=== PATIENT | female | born 1935 | race Caucasian/White ===

== ENCOUNTER → 2018-03-30 09:18 | Outpatient (CLI) | payer MEDICARE, SELFPAY ==
[2018-03-10 18:54] VITALS: BMI 22.3
[2018-03-12 08:31] VITALS: TEMP 36.7
--- NOTE | 2018-03-30 | DI.ECHO.S_ITS ---
[facility]---------+ [facility] +---------+ : : [address] : : : : [id number] : : : : Phone: [phone]+ Echocardiogram Report + + :Name: ROSA PANDYA Study Date: 03/30/2018 Height: 62 in : :[facility] Weight: 133 lb : : Gender: Female BSA: 1.6 m2 : :: 1935 Age: 82 yrs BP: 144/64 mmHg: :Reason For Study: Aortic valve stenosis : : Performed By: Leann Vargas : :Referring: SAE SHER : + + Interpretation Summary The left ventricle is normal in size, wall thickness, and systolic function without any focal wall motion abnormalities. The ejection fraction is estimated to be 60-65%. Assessment of diastolic parameters indicates a relaxation abnormality of the left ventricle, consistent with normal filling pressures. The right ventricle grossly appears normal in size with probable normal systolic function. The right ventricular systolic pressure is estimated at 38 mmHg assuming a right atrial pressure of 3 mm Hg. The left atrium is severely dilated. Right atrial size is normal. There is mild mitral regurgitation. There is critically severe aortic stenosis which has increased since prior study. The calculated aortic valve area is 0.5 cm2. The peak aortic velocity is 5.5 m/sec. The peak aortic velocity on the previous exam was 5.0 m/sec. There is mild to moderate aortic regurgitation. There is no other significant valvular heart disease. The aortic root is normal size. Consider cardiology consult to see if patient is candidate for transfemoral aortic valve implant. Procedure: A two-dimensional transthoracic echocardiogram with color flow and Doppler was performed. The study quality was technically good. Comparison is made with the echocardiogram of 04-25-17. The patient was in normal sinus rhythm during the exam. Left Ventricle: The left ventricle is normal in size, wall thickness, and systolic function without any focal wall motion abnormalities. The ejection fraction is estimated to be 60-65%. Assessment of diastolic parameters indicates a relaxation abnormality of the left ventricle, consistent with normal filling pressures. Right Ventricle: The right ventricle grossly appears normal in size with probable normal systolic function. Atria: The left atrium is severely dilated. Right atrial size is normal. The interatrial septum is intact with no evidence for an atrial septal defect. Mitral Valve: The mitral valve leaflets appear borderline thickened, but open well. There is mild mitral regurgitation. Aortic Valve: There is critically severe aortic stenosis. The calculated aortic valve area is 0.5 cm2. The peak aortic velocity is 5.5 m/sec. The peak aortic velocity on the previous exam was 5.0 m/sec. The aortic valve mean gradient is 70 mmHg. Severity ratio is 0.16. The aortic valve area indexed to the BSA is 0.34 . There is mild to moderate aortic regurgitation. Tricuspid Valve: The tricuspid valve is not well visualized, but is grossly normal. There is mild tricuspid regurgitation. The right ventricular systolic pressure is estimated at 38 mmHg assuming a right atrial pressure of 3 mm Hg. Pulmonic Valve: The pulmonic valve is not well visualized. There is no other significant valvular heart disease. Great Vessels: The aortic root is normal size. The dimensions of the ascending aorta are normal. The aortic arch is normal in size. The IVC is of normal diameter and collapses greater than 50% with a sniff. This suggests a low right atrial pressure of 3 mm Hg. Pericardium/ Pleura There is no pericardial effusion. There is no pleural effusion. MMode/2D Measurements & Calculations LVIDd: 5.1 cm LVOT diam: 2.1 cm LVIDs: 2.9 cm Ao root diam: 2.8 cm FS: 42.6 % Aortic Jxn: 2.2 cm EPSS: 1.3 cm asc Aorta Diam: 3.1 cm IVSd: 0.92 cm Ao Arch Diam (Prox Trans): 2.5 cm LVPWd: 0.91 cm LV lozada. diameter/BSA (cm/m^2): 3.2 LV sys. diameter/BSA (cm/m^2): 1.8 LA dimension: 4.2 cm RA long axis: 4.9 cm LA A2 area: 24.2 cm2 RA area: 16.4 cm2 LA A4 area: 29.4 cm2 RA vol: 46.6 ml LA length (vol): 5.6 cm RA : 29.0 ml/m2 LA vol: 107.5 ml IVC diam: 1.2 cm LA vol index: 66.9 ml/m2 RVDd major: 4.8 cm RVD1 (basal): 3.6 cm RVD2 (mid): 3.5 cm ARCELIA (plan): 0.76 cm2 Doppler Measurements & Calculations Ao V2 max: 546.1 cm/sec LVOT Max Phong: 82.6 cm/sec Ao V2 mean: 396.5 cm/sec LV V1 max P.7 mmHg Ao max P.3 mmHg LV V1 VTI: 20.3 cm Ao mean P.3 mmHg ARCELIA(I,D): 0.55 cm2 Ao V2 VTI: 125.3 cm ARCELIA(V,D): 0.51 cm2 sev ratio: 0.16 ARCELIA indexed to BSA (cm^2/m^2): 0.34 AI P1/2t: 407.4 msec AI dec slope: 327.6 cm/sec2 MV E max phong: 79.7 cm/sec TR max phong: 296.6 cm/sec MV A max phong: 119.2 cm/sec TR max P.2 mmHg MV E/A: 0.67 Med Peak E' Phong: 5.1 cm/sec E/E' med: 15.8 Lat Peak E' Phong: 5.6 cm/sec E/E' lat: 14.2 E/e' average: 15.0 MV dec time: 0.27 sec MV P1/2t: 80.9 msec MV P1/2t max phong: 79.9 cm/sec MVA(P1/2t): 2.7 cm2 Reading Physician:PM
== END ==
PROVIDERS: Family Provider Family Medicine; PCP Family Medicine; Visit Provider Family Medicine
DX: I35.0 Nonrheumatic aortic (valve) stenosis (principal)
CPT/HCPCS: 93306

== ENCOUNTER 2018-04-06 12:42 | Day surgery (SDC) | payer MEDICARE, SELFPAY ==
[2018-03-10 18:54] VITALS: BMI 22.3
[2018-03-12 08:31] VITALS: TEMP 36.7
[2018-04-06] VITALS (10 sets, daily range): BP systolic 65–90; BP diastolic 37–59; PULSE 64–93; RESP 9–16; TEMP 36.2–36.6; O2SAT 93–98; BMI 23.0
[2018-04-06] MEDS: SODIUM CHLORIDE 0.9% 1,000 ML 200 ML IV (13:39)
[2018-04-06] MEDS: MIDAZOLAM 5 MG/5 ML VIAL IV (14:14)
[2018-04-06] MEDS: fentaNYL 250 MCG/5 ML INJ IV (14:33)
--- NOTE | 2018-04-06 14:43 | PM.OP.ENDO ---
Operative Date/Time/Diagnoses - Date of procedure: 04/06/18 Time of procedure: 14:44 Pre-op diagnosis: Gastrointestinal hemorrhage with symptomatic iron-deficiency anemia Post-op diagnosis: same Procedure & Clinicians Study performed: Colonoscopy Sedation per surgeon Same procedure as scheduled: Yes Indications: 82-year-old female recently hospitalized for iron deficiency anemia. She required transfusion of packed red blood cells. EGD at that admission several weeks ago revealed no significant abnormalities. She returns now for planned scheduled colonoscopy following bowel preparation. Surgeon: Bernard Monk Procedure Notes SCOAP/Timeout: Yes Procedure in detail: After obtaining informed consent, the patient was brought to the GI suite and placed in the left lateral decubitus position on the examination table. After placement of appropriate monitors, the patient was given incremental doses of Versed and Fentanyl until an appropriate level of sedation was achieved. A time out was held per SCOAP protocol. A digital rectal examination was performed and did not reveal any masses or obstructing lesions. The colonoscope was gently passed into the patient's anus and the entire colon navigated to the level of the cecum with minimal difficulty. Once in the cecum, the scope was withdrawn being sure to go before and beyond all mucosal folds and prominences and get an excellent examination. The findings are noted above. At the level of the rectal vault, the scope was retroflexed and the internal anal canal was examined. The scope was straightened and air aspirated from the colon. The instrument was removed from the patient's body and the procedure was concluded. The patient was allowed to awaken from sedation without difficulty and taken to the post-anesthesia care unit in good condition. Scope withdrawal time: 8:30 Sedation minutes: 28 Findings: diverticulosis (Large circumferential too numerous to count diverticula throughout the entire colon including cecum) and other findings (1. Normal terminal ileum 2. No evidence of neoplastic disease or colitis 3. No obvious bleeding source identified 4. No obvious vascular ectasias) Specimen(s): none sent Complications: none Recommendations: High fiber diet and Other recommendation (If recurrence hemorrhage occurs would recommend evaluation at facility with angiography or capsule endoscopy capability) Plan for aftercare: 1. Discharge to home 2. Follow up with surgery as needed Follow up: as needed Disposition: PACU
[2018-04-06] MEDS: SODIUM CHLORIDE 0.9% 1,000 ML 100 ML IV (14:50)
--- NOTE | 2018-04-06 15:10 | SUR.PHASEI ---
bp gradually increasing, pt asymptomatic talking and drinking juice.
--- NOTE | 2018-04-06 17:45 | SUR.PHASEII ---
late entry: daughter brought to bedside- pt alert oriented, no c/o dizziness or weakness. pt left when ready and left in stable condition.
== END 2018-04-06 15:55 | disposition home or self-care (01) ==
PROVIDERS: Family Provider Family Medicine; PCP Family Medicine; Visit Provider Surgery
PROC: 0DJD8ZZ Inspection of Lower Intestinal Tract, Via Natural or Artificial Opening Endoscopic (ICD-10-PCS; CPT 45378; 2018-04-06 14:00)
DX: K92.2 Gastrointestinal hemorrhage, unspecified (principal); D50.9 Iron deficiency anemia, unspecified; K57.30 Diverticulosis of large intestine without perforation or abscess without bleeding
CPT/HCPCS: 45378; 99152; 99153; J2250; J3010

== ENCOUNTER → 2018-04-19 08:00 | Oncology outpatient (ONC) | payer MEDICARE, SELFPAY ==
[2018-03-10 18:54] VITALS: BMI 22.3
[2018-04-19] VITALS (8 sets, daily range): BP systolic 105–141; BP diastolic 50–70; PULSE 67–88; RESP 16–18; TEMP 36.8–37.3; O2SAT 100
[2018-04-19] MEDS: SODIUM CHLORIDE 0.9% 250 ML 21 ML IV (09:25)
[2018-04-19 17:21] LABS: Hematocrit 30.4 % (36-46); Hemoglobin 10.2 g/dL (12.0-16.0)
== END ==
PROVIDERS: Family Provider Family Medicine; PCP Family Medicine; Visit Provider Family Medicine
DX: D50.9 Iron deficiency anemia, unspecified (principal); K92.2 Gastrointestinal hemorrhage, unspecified
CPT/HCPCS: 36415; 36430; 85014; 85018; 86850; 86900; 86901; P9016

== ENCOUNTER 2018-05-10 13:07 | Observation (INO) | payer MEDICARE, SELFPAY ==
[2018-03-10 18:54] VITALS: BMI 22.3
[2018-05-10] VITALS (12 sets, daily range): BP systolic 91–133; BP diastolic 49–68; PULSE 62–107; RESP 12–20; TEMP 36.4–37.2; O2SAT 97–100; BMI 23.0
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
[2018-05-10] MEDS: ONDANSETRON 4 MG/2 ML INJ IV (13:51)
[2018-05-10] MEDS: SODIUM CHLORIDE 0.9% 1,000 ML 1000 ML IV (13:51)
[2018-05-10] MEDS: PANTOPRAZOLE 40 MG VIAL IV (13:51)
[2018-05-10 13:55] LABS: INR 1.1 (0.9-1.3); Prothrombin Time 11.6 SECONDS (10.1-12.7)
[2018-05-10 13:57] LABS: Basophils Percent Auto 1.1 % (0-2); Eosinophils Percent Auto 1.4 % (2-4); Lymphocytes Percent Auto 14.3 % (25-40); Mean Corpuscular HGB Conc 31.7 % (30-36); Mean Corpuscular Hemoglobin 26.5 PG (26-34); Mean Corpuscular Volume 83.6 fL (80-100); Monocytes Percent Auto 11.8 % (3-14); Neutrophils Absolute Auto 3600 /uL (3000-5900); Neutrophils Percent Auto 71.4 % (50-75); Platelet Count 305 X10^3/uL (150-400); Red Blood Cell Count 2.38 X10^6/uL (4.0-5.2); Red Cell Distribution Width 15.2 % (11.6-14.8)
[2018-05-10 13:58] LABS: PTT Partial Thromboplastin Tim 30 SECONDS (26.4-36.2)
[2018-05-10 14:00] LABS: Alanine Aminotransferase 25 IU/L (9-52); Albumin 3.6 g/dL (3.5-5.0); Albumin Globulin Ratio 1.3 (1.0-2.8); Alkaline Phosphatase 63 U/L (38-126); Aspartate Aminotransferase 28 IU/L (14-36); BUN Creatinine Ratio 28.3 (6-22); Bilirubin Total 0.3 mg/dL (0.2-1.3); Blood Urea Nitrogen 17 mg/dL (7-17); Calcium 8.7 mg/dL (8.4-10.2); Carbon Dioxide 22 mmol/L (22-32); Chloride 104 mmol/L (98-107); Estimated Glomerular Filt Rate > 60.0 mL/min (>60); Globulin 2.7 g/dL (1.7-4.1); Glucose 142 mg/dL (80-110); HEMOLYSIS < 15 (0-50); Sodium 137 mmol/L (137-145); Total Protein 6.3 g/dL (6.3-8.2)
[2018-05-10 14:03] LABS: Add Manual Diff / Slide Review SLIDE REVIEW; Hematocrit 19.9 % (36-46); Hemoglobin 6.3 g/dL (12.0-16.0)
[2018-05-10 14:34] LABS: RBC Morphology Normal Morphology
--- NOTE | 2018-05-10 16:19 | PM.HP.1 ---
History of Present Illness Date Patient Seen: 05/10/18 Time Patient Seen: 16:20 Chief complaint: CAN'T BREATHE Narrative: Patient developed increasing weakness and shortness of breath over the past few days. She knew what was happening as this has happened before. She has had a progressive anemia over the past several months requiring transfusion at least twice she has had workup including GI with scopes above and below as well as lab evaluation and no clear cause has been found. She has an appointment with Hematology upcoming but until then he is uncertain of the cause or long-term prognosis. She evidently does have a positive guaiac but never black tarry or bloody stools. She has been found with some iron deficiency and has remained on a supplement although that is not felt to be primary cause of her anemia. She has also been found recently with a severe aortic stenosis which could contribute to her symptoms and perhaps the anemia. I believe a path review has been done of the RBC but not sure if hemolysis has been ruled out. Patient History Medical History Anemia (Acute) GI (gastrointestinal bleed) (Acute) Aortic stenosis (Chronic) Hypertension (Chronic) Allergic rhinitis (Chronic) Breast cancer (Chronic) Hiatal hernia (Chronic) Iron deficiency anemia (Acute) Diverticulosis (Inactive) Surgical History H/O mastectomy (Inactive) Family & Social History Family History Mother No problems noted. Father AMI (acute myocardial infarction) Social History: household members family,none Tobacco & Substance use: Tobacco type cigarettes Smoking Status Former smoker alcohol intake current alcohol intake frequency a few times a week Substance Use Type marijuana,prescription drug Meds Home Medications Medication Instructions Recorded Confirmed Type cetirizine 10 mg PO DAILY PRN #0 02/12/18 04/06/18 History aspirin 81 mg PO QPM 03/10/18 04/06/18 History calcium carbonate-vitamin D3 1 tab PO QPM 03/10/18 03/10/18 History [Calcium 500 + D] cholecalciferol (vitamin D3) 1,000 unit PO QPM 03/10/18 03/10/18 History [Vitamin D3] ferrous sulfate 325 mg PO DAILY 03/10/18 03/10/18 History lisinopril 10 mg PO QPM 03/10/18 04/06/18 History omeprazole 20 mg PO BID 03/10/18 04/06/18 History Allergies Allergy/AdvReac Type Severity Reaction Status Date / Time No Known Drug Allergies Allergy Verified 05/10/18 13:17 Review of Systems Constitutional Constitutional: Reports fatigue and Reports weakness Eyes Eyes: Reports system reviewed; no additional complaints, except as documented ENT Ears, Nose, Mouth, and Throat: Yes system reviewed; no additional complaints, except as documented Cardiovascular Cardiovascular: Reports shortness of breath with activity Respiratory Respiratory: Reports dyspnea on exertion Gastrointestinal Gastrointestinal: Reports system reviewed and no additional complaints, except as documented Genitourinary Genitourinary: Reports system reviewed and no additional complaints, except as documented Musculoskeletal Musculoskeletal: Reports system reviewed; no additional complaints, except as documented Integumentary/Breasts Skin/Breast: Reports system reviewed and no additional complaints, except as documented Neurologic Neurologic: Reports system reviewed and no additional complaints, except as documented and Reports weakness Psychiatric Psychiatric: Reports system reviewed and no additional complaints, except as documented Endocrine Endocrine: Reports system reviewed and no additional complaints, except as documented and Reports fatigue Hematologic/Lymphatic Hematologic/Lymphatic: Reports system reviewed and no additional complaints, except as documented Exam Vital Signs (past 8 hours): - 05/10/18 13:17 05/10/18 14:06 05/10/18 14:24 Temperature 97.6 F Pulse Rate 101 H 93 H 107 H Respiratory Rate 13 13 12 Blood Pressure 133/61 H Blood Pressure [Left Arm] 125/54 H 91/50 L Blood Pressure [Right Arm] Pulse Oximetry 100 98 100 05/10/18 15:01 05/10/18 15:14 05/10/18 15:31 Temperature 99.0 F 99.0 F Pulse Rate 92 H 92 H 101 H Respiratory Rate 17 14 20 Blood Pressure 104/53 L 102/61 Blood Pressure [Left Arm] 99/64 Blood Pressure [Right Arm] Pulse Oximetry 99 05/10/18 15:33 05/10/18 16:00 Temperature 98.2 F Pulse Rate 99 H 97 H Respiratory Rate 17 14 Blood Pressure Blood Pressure [Left Arm] 102/61 Blood Pressure [Right Arm] 97/57 L Pulse Oximetry 100 100 Oxygen Delivery Method Room Air Const General: frail appearing Nutritional Appearance: average body habitus Orientation: alert, awake and oriented x3 HENMT Head: normal to inspection, normocephalic and atraumatic Ears: hearing grossly normal bilaterally Nose: external nose normal Face and sinus: normal facial exam Mouth: oral mucosae normal Eyes General: appearance normal, both eyes and all related structures Pupils: PERRL Neck Neck: normal visual inspection Thyroid: thyroid normal Chest Chest: normal inspection of the chest Resp Effort & Inspection: normal respiratory effort Auscultation: clear to auscultation bilaterally Percussion: percussion normal Cardio Palpation: normal PMI Rate: regular rate Heart Sounds: murmur continuous late and III/ and diastolic GI Inspection: normal to inspection Palpation: soft and no hepatosplenomegaly Percussion: normal to percussion Auscultation: normal bowel sounds Back/Spine/Pelvis Back: normal to inspection Skin General: no rashes or lesions noted Neuro General: alert, awake and oriented x3 Cranial Nerves: CN's II-XI intact bilaterally Cognition: normal cognition Speech: speech normal Sensory Exam: no sensory deficits noted Extrem General: normal to inspection Left upper extremity: normal to inspection Right lower extremity: normal to inspection Psych Appearance: grossly normal and well kempt Mental Status: mental status grossly normal Objective Labs Result Diagrams: 05/10/18 13:25 05/10/18 13:25 Labs: Laboratory Results - last 24 hr 05/10/18 05/10/18 05/10/18 13:25 13:25 13:25 WBC 5.0 RBC 2.38 L Hgb 6.3 L* Hct 19.9 L* MCV 83.6 MCH 26.5 MCHC 31.7 RDW 15.2 H Plt Count 305 Neut % (Auto) 71.4 Lymph % (Auto) 14.3 L [place] % (Auto) 11.8 Eos % (Auto) 1.4 L Baso % (Auto) 1.1 Neut # (Auto) 3600 RBC Morphology Normal morphology PT 11.6 INR 1.1 APTT 30 Sodium 137 Potassium 4.0 Chloride 104 Carbon Dioxide 22 BUN 17 Creatinine 0.60 Estimated GFR > 60.0 BUN/Creatinine Ratio 28.3 H Glucose 142 H Calcium 8.7 Total Bilirubin 0.3 AST 28 ALT 25 Alkaline Phosphatase 63 Total Protein 6.3 Albumin 3.6 Globulin 2.7 Albumin/Globulin Ratio 1.3 Blood Type Antibody Screen Crossmatch 05/10/18 05/10/18 13:25 13:25 WBC RBC Hgb Hct MCV MCH MCHC RDW Plt Count Neut % (Auto) Lymph % (Auto) [place] % (Auto) Eos % (Auto) Baso % (Auto) Neut # (Auto) RBC Morphology PT INR APTT Sodium Potassium Chloride Carbon Dioxide BUN Creatinine Estimated GFR BUN/Creatinine Ratio Glucose Calcium Total Bilirubin AST ALT Alkaline Phosphatase Total Protein Albumin Globulin Albumin/Globulin Ratio Blood Type Cancelled A Positive Antibody Screen Cancelled Negative Crossmatch See Detail Assessment & Plan (1) Anemia: Problem details: Ongoing persistent and worsening, no cause so far in defining any clear underlying cause possibly iron deficiency may also have hemolytic causes. Awaiting appointment with hematology Qualifiers: Anemia type: Bone marrow failure anemia type: Chronic kidney disease stage: Folate deficiency anemia type: Hemolytic anemia type: Iron deficiency anemia type: Other causes of anemia: Vitamin B12 deficiency anemia type: Current visit: No Status: Acute (2) GI (gastrointestinal bleed): Problem details: She has been found with positive guaiac but so far evaluation is found no clear cause or source of bleeding. Not clear how much this contributes. Qualifiers: GI bleed type/associated pathology: Gastritis type: Current visit: No Status: Acute (3) Aortic stenosis: Problem details: A recent finding thought to be severe or could be a factor in early hemolysis perhaps her above issues unclear how much impact his rehab but certainly might contribute to her presenting symptoms. Qualifiers: Cardiac valve disease etiology: Current visit: Yes Status: Chronic (4) Breast cancer: Problem details: Has been treated history of mastectomy seems in remission at this time. Current visit: Yes Status: Chronic (5) Hypertension: Problem details: Chronic ongoing problem usually well controlled. Current visit: Yes Status: Chronic (6) Hiatal hernia: Current visit: Yes Status: Chronic (7) Iron deficiency anemia: Problem details: Has been found with some iron deficiency has been on replacement not clear how much this contributes. Current visit: Yes Status: Acute (8) Allergic rhinitis: Current visit: Yes Status: Chronic Plan: Assessment/Plan Narrative: Will admit for observation transfuse 3 units of blood overnight recheck in the morning not sure what else we can do I will ask for a path review of admitting smear but presume other workup has been completed in the past. She is eager to go home so anticipate discharge in the morning. 45 min was spent in direct patient care.
[2018-05-10 17:05] LABS: Add Manual Diff / Slide Review NO; Eosinophils Percent Auto 1.3 % (2-4); Hemoglobin 7.2 g/dL (12.0-16.0); Lymphocytes Percent Auto 14.2 % (25-40); Mean Corpuscular HGB Conc 32.2 % (30-36); Mean Corpuscular Hemoglobin 27.1 PG (26-34); Mean Corpuscular Volume 84.1 fL (80-100); Monocytes Percent Auto 8.9 % (3-14); Neutrophils Absolute Auto 4800 /uL (3000-5900); Neutrophils Percent Auto 74.6 % (50-75); Platelet Count 299 X10^3/uL (150-400); Red Blood Cell Count 2.64 X10^6/uL (4.0-5.2); Red Cell Distribution Width 15.3 % (11.6-14.8); White Blood Cell Count 6.4 X10^3/uL (4.5-11.0)
[2018-05-10 17:13] LABS: Hematocrit 22.2 % (36-46)
[2018-05-10] MEDS: SODIUM CHLORIDE 0.9% FLUSH 10 ML IV (23:50)
[2018-05-11 00:15] VITALS: BP 102/49; PULSE 74; RESP 16; TEMP 37.2
--- NOTE | 2018-05-11 01:20 | PC.NURSE ---
Patient is alert and oriented. Breath sounds CTA with RA sat of 97%. HRR. Denies nausea. BT present and abdomen is soft. Denies dysuria, frequency, urgency or incontinence. Independent with bed mobility. Walked to bathroom with SBA and is steady on feet; denies dizziness, lightheadedness, weakness or impaired balance. Denies pain. Fall risk score is moderate and bed alarm activated for the night.
[2018-05-11 04:00] VITALS: BP 94/53; PULSE 75; RESP 14; TEMP 37.1; O2SAT 92
[2018-05-11 07:00] VITALS: O2SAT 98
[2018-05-11 08:00] VITALS: BP 113/69; PULSE 78; RESP 18; TEMP 36.8
--- NOTE | 2018-05-11 08:45 | PM.DS.1 ---
History of Present Illness Date Patient Seen: 05/11/18 Time Patient Seen: 08:45 Chief complaint: CAN'T BREATHE Narrative: see H&P Discharge Providers Date of admission: 05/10/18 15:52 Primary care physician: Purvi Mares MD Discharge provider: Issa Nuno MD Summary Discharge Diagnosis: Anemia with apparently multiple factors involved. These include possible GI loss, iron deficiency, possible hemolysis. Hypertension not a significant factor in this hospitalization. See problem list for chronic problems. Hospital Course: After increasing weakness and shortness of breath came to the emergency room evaluated found to be significantly anemic and referred for admission. She received for 3 units of packed red blood cells we are currently waiting for final blood count but anticipate that it should be close to hematocrit 30. She is feeling a bit better, stronger less short of breath up and around on her own. Status at Discharge Cognitive/behavioral status at discharge: Normal Functional status at discharge: uses cane/walker Overall status at discharge: patient is back to baseline Time Spent with Patient Greater than 30 minutes Exam Vital Signs (past 8 hours): - 05/11/18 04:00 Temperature 98.7 F Pulse Rate 75 Respiratory Rate 14 Blood Pressure 94/53 L Pulse Oximetry 92 Oxygen Delivery Method Room Air Narrative Exam Narrative: Somewhat frail-appearing but up and around with walker no acute distress. HEENT unremarkable neck is benign chest is clear heart regular with a prominent late systolic murmur abdomen soft nontender nondistended normoactive bowel tones no organomegaly or mass extremities benign neurologically benign Objective Labs Result Diagrams: 05/10/18 16:51 05/10/18 13:25 Labs: Laboratory Results - last 24 hr 05/10/18 05/10/18 05/10/18 13:25 13:25 13:25 WBC 5.0 RBC 2.38 L Hgb 6.3 L* Hct 19.9 L* MCV 83.6 MCH 26.5 MCHC 31.7 RDW 15.2 H Plt Count 305 Neut % (Auto) 71.4 Lymph % (Auto) 14.[address] [place] % (Auto) 11.8 Eos % (Auto) 1.4 L Baso % (Auto) 1.1 Neut # (Auto) 3600 RBC Morphology Normal morphology Smear Path Review PT 11.6 INR 1.1 APTT 30 Sodium 137 Potassium 4.0 Chloride 104 Carbon Dioxide 22 BUN 17 Creatinine 0.60 Estimated GFR > 60.0 BUN/Creatinine Ratio 28.3 H Glucose 142 H Calcium 8.7 Total Bilirubin 0.3 AST 28 ALT 25 Alkaline Phosphatase 63 Total Protein 6.3 Albumin 3.6 Globulin 2.7 Albumin/Globulin Ratio 1.3 Blood Type Antibody Screen Crossmatch 05/10/18 05/10/18 05/10/18 13:25 13:25 16:51 WBC 6.4 RBC 2.64 L Hgb 7.2 L Hct 22.2 L MCV 84.1 MCH 27.1 MCHC 32.2 RDW 15.3 H Plt Count 299 Neut % (Auto) 74.6 Lymph % (Auto) 14.[address] [place] % (Auto) 8.9 Eos % (Auto) 1.3 L Baso % (Auto) 1.0 Neut # (Auto) 4800 RBC Morphology Smear Path Review Cancelled PT INR APTT Sodium Potassium Chloride Carbon Dioxide BUN Creatinine Estimated GFR BUN/Creatinine Ratio Glucose Calcium Total Bilirubin AST ALT Alkaline Phosphatase Total Protein Albumin Globulin Albumin/Globulin Ratio Blood Type Cancelled A Positive Antibody Screen Cancelled Negative Crossmatch See Detail Discharge Plan Discharge Plan Patient Disposition: Home, Self-Care Provider Discharge Instructions Diet: Diet as Tolerated Discharge Data Primary Care Provider: Purvi Mares Attending Provider: Issa Nuno Admit Date/Time: 05/10/18 15:52
[2018-05-11 08:53] LABS: Add Manual Diff / Slide Review NO; Basophils Percent Auto 1.1 % (0-2); Eosinophils Percent Auto 1.9 % (2-4); Hematocrit 35.2 % (36-46); Hemoglobin 11.6 g/dL (12.0-16.0); Lymphocytes Percent Auto 12.3 % (25-40); Mean Corpuscular HGB Conc 33.1 % (30-36); Mean Corpuscular Hemoglobin 27.7 PG (26-34); Mean Corpuscular Volume 83.8 fL (80-100); Monocytes Percent Auto 11.8 % (3-14); Neutrophils Absolute Auto 5200 /uL (3000-5900); Neutrophils Percent Auto 72.9 % (50-75); Platelet Count 316 X10^3/uL (150-400); Red Cell Distribution Width 15.3 % (11.6-14.8); White Blood Cell Count 7.1 X10^3/uL (4.5-11.0)
--- NOTE | 2018-05-11 08:57 | PC.NURSE ---
Pt is up sitting in chair. She ate breakfast and has been up to use the bathroom. Dr/Raul. in room to see patient and ordered and H&H. When results come back pt will be discharged home, depending on lab result. She is getting dressed now and sitting up in her chair, she will call her friend who lives close to come and pick her up.
== END 2018-05-11 10:35 | disposition home or self-care (01) ==
LOC: ED 14:48 → AC 15:55
PROVIDERS: Admitting Provider Family Medicine; Emergency Provider Emergency Medicine; Family Provider Family Medicine; PCP Family Medicine; Visit Provider Family Medicine
DX: D64.9 Anemia, unspecified (principal); R06.00 Dyspnea, unspecified; K44.9 Diaphragmatic hernia without obstruction or gangrene; I10 Essential (primary) hypertension; I35.0 Nonrheumatic aortic (valve) stenosis; K92.2 Gastrointestinal hemorrhage, unspecified
CPT/HCPCS: 36415; 36430; 80053; 85025; 85610; 85730; 86850; 86900; 86901; 93005; 93041; 96361; 96374; 96375; 99285; G0378; P9016; C9113; J2405

== ENCOUNTER 2018-06-08 14:25 | Observation (INO) | payer MEDICARE, SELFPAY ==
[2018-05-10 16:30] VITALS: BMI 23.0
[2018-06-08] VITALS (8 sets, daily range): BP systolic 125–154; BP diastolic 54–85; PULSE 61–88; RESP 11–20; TEMP 36.7–36.9; O2SAT 97–100; BMI 22.4
[2018-06-08 14:39] LABS: Add Manual Diff / Slide Review NO; Basophils Percent Auto 1.3 % (0-2); Eosinophils Percent Auto 3.4 % (2-4); Hematocrit 26.4 % (36-46); Hemoglobin 8.6 g/dL (12.0-16.0); Lymphocytes Percent Auto 18.4 % (25-40); Mean Corpuscular HGB Conc 32.6 % (30-36); Mean Corpuscular Hemoglobin 26.7 PG (26-34); Monocytes Percent Auto 9.3 % (3-14); Neutrophils Absolute Auto 4700 /uL (3000-5900); Neutrophils Percent Auto 67.6 % (50-75); Platelet Count 350 X10^3/uL (150-400); Red Blood Cell Count 3.22 X10^6/uL (4.0-5.2); Red Cell Distribution Width 14.7 % (11.6-14.8)
[2018-06-08 14:44] LABS: Prothrombin Time 10.8 SECONDS (10.1-12.7)
[2018-06-08 14:47] LABS: PTT Partial Thromboplastin Tim 33 SECONDS (26.4-36.2)
[2018-06-08 14:49] LABS: Alanine Aminotransferase 21 IU/L (9-52); Albumin 4.1 g/dL (3.5-5.0); Albumin Globulin Ratio 1.4 (1.0-2.8); Alkaline Phosphatase 83 U/L (38-126); Aspartate Aminotransferase 24 IU/L (14-36); BUN Creatinine Ratio 21.4 (6-22); Bilirubin Total 0.3 mg/dL (0.2-1.3); Blood Urea Nitrogen 15 mg/dL (7-17); Calcium 9.1 mg/dL (8.4-10.2); Carbon Dioxide 26 mmol/L (22-32); Chloride 102 mmol/L (98-107); Creatine Kinase 42 U/L (30-135); Estimated Glomerular Filt Rate > 60.0 mL/min (>60); Globulin 2.9 g/dL (1.7-4.1); Glucose 101 mg/dL (80-110); HEMOLYSIS < 15 (0-50); Lipase 98 U/L (23-300); Potassium 4.3 mmol/L (3.4-5.1); Sodium 138 mmol/L (137-145)
[2018-06-08 15:02] LABS: Troponin I < 0.012 ng/mL (0.01-0.034)
[2018-06-08 15:20] LABS: D Dimer 552 ng/mL (<230)
--- NOTE | 2018-06-08 15:35 | DI.CT.S_ITS ---
PROCEDURE: CT ANGIO CHEST PE PROTOCOL INDICATIONS: pulmonary embolism TECHNIQUE: After the administration of intravenous contrast, 2 mm thick sections acquired from the pulmonary apices to the posterior costophrenic angles. 3-dimensional maximum intensity projection (MIP) coronal and sagittal reformats were then acquired through the thorax. For radiation dose reduction, the following was used: automated exposure control, adjustment of mA and/or kV according to patient size. COMPARISON: None. FINDINGS: Image quality: Excellent. Pulmonary arteries: Pulmonary arteries are normal in size, and demonstrate no intraluminal filling defects to suggest central pulmonary embolism. Lungs and pleura: No focal consolidation. Diffuse scarring/atelectasis is present.. No pleural effusions or pneumothorax. Central and peripheral airways are patent. Mediastinum: Heart size is enlarged, without pericardial effusion. There are coronary artery calcifications. No mediastinal or hilar adenopathy. Thoracic aorta is normal in caliber and enhancement. Esophagus is normal in caliber. There is a large hiatal hernia. Bones and chest wall: No suspicious bony lesions. There are multiple probably chronic nondisplaced rib fractures on the right.. Thyroid gland grossly unremarkable. No axillary or supraclavicular adenopathy. Surgical clips in left axilla Abdomen: Possible right renal cyst although not entirely imaged and technically indeterminate. Mildly enlarged lymph nodes in the bashir hepatis on image 141 series 4 measuring 1.1 cm. This is a nonspecific finding. Mild T11 compression fracture, age indeterminate. IMPRESSION: No evidence of pulmonary embolism. Very large hiatal hernia. Cardiomegaly. Coronary artery disease. No focal consolidation. Multiple subacute or chronic nondisplaced right rib fractures. Dictated by: Hussein Manzano M.D. on 06/08/2018 at 15:05 Approved by: Hussein Manzano M.D. on 06/08/2018 at 15:12
[2018-06-08 16:10] LABS: Bacteria Urine None Seen; RBC Urine None Seen (0-5/HPF); WBC Urine None Seen (0-5/HPF)
[2018-06-08 16:23] LABS: Amorphous Sediment Urine 1+; Culture Indicated Urine Cult Not Indicated
[2018-06-08 17:56] LABS: Troponin I < 0.012 ng/mL (0.01-0.034)
--- NOTE | 2018-06-08 18:28 | ED.CHESTPAIN ---
HPI - Chest Pain General Chief Complaint: Chest Pain Stated Complaint: Chest Pain History of Present Illness HPI narrative: HPI 82-year-old female with a history of breast CA, anemia, and HTN presents for evaluation of several hours of nonradiating, poorly characterized, left-sided substernal chest pain that is without clear provoking or relieving factors. Patient without cough, fevers, chills, continues to PO well pass flatus and stool at baseline. M/S/F/SocHx notable for: please see HPI; remainder reviewed with patient and in chart. ROS: Negative constitutional, eye, cardiovascular, pulmonary, GI, , MSK, skin, neurologic, psychiatric, endocrine unless noted in the HPI. Exam Gen: Pleasant, non-toxic appearing, resting comfortably. HEENT: NC, AT, PEERL, EOMI. Resp: Clear to auscultation bilaterally, normal work of breathing. Card: RRR with no M/R/G, no crackles in lung bases, no pedal edema, no JVD appreciated. GI: NT/ND Vascular: Both ankles, calves, and thighs of equal size, no calf tenderness to palpation bilaterally. MSK: No chest wall TTP. No visible deformities, strength and tone WNL. Skin: Normal color with no visible lesions. Neuro: AO x 3, no facial asymmetry, vision and hearing WNL. Psych: Mood and affect appropriate. Labs / Imaging (pertinent): WBC 7.0, Hb 8.6, Na 138, K 4.3. Troponin < 0.012, troponin (repeat) <0.012 d-dimer 552 EKG: SR at 77 bpm, no IL segment depressions, PACs, QRS 83 ms, new upright T-wave in V1, increased T-wave amplitude in the 2, V3 in comparison to prior dated 05/10/18. CXR: No acute cardiopulmonary disease process. CTA chest: No evidence of pulmonary embolism. Very large hiatal hernia. Cardiomegaly. Coronary artery disease. No focal consolidation. Multiple subacute or chronic nondisplaced right rib fractures. MDM Previous chart, nursing note, and vitals reviewed. A: 82-year-old female with a history of breast CA and HTN presents for evaluation of several hours of nonradiating, poorly characterized, left-sided substernal chest pain that is without clear provoking or relieving factors. DDx and Evaluation: * ACS - doubt ACS given a non-ischemic EKG and negative serial troponins. * UA - concern for unstable angina, HEART score 4 (Hx - 1, EKG - 1, age - 2, risk factors - 1, troponin - 0; 30 day MACE: 12 to 16.6%). * Pericarditis - consider pericarditis unlikely given the lack of IL segment depressions as well as the absence of diffuse ST-segment elevations, lack of reduction of pain when supine, and lack of a friction rub. * Myocarditis - unlikely given the negative troponin and an EKG without characteristic IL-segment or ST-segment changes. * Dissection - dissection is unlikely given symptoms, and lack of mediastinal widening. * PE - low clinical suspicion given history and alternate diagnosis, further risk stratification (e.g.) Well's not indicated. * Mediastinal Air - no evidence by CXR or auscultation. * Pneumothorax - no evidence by CXR or physical exam. * MSK - doubt given lack of reproducibility on exam. * Endocarditis - no identifiable risk factors, patient afebrile, no new murmurs appreciated on exam; doubt. * GI (Esophageal rupture, GERD) - esophageal rupture effectively excluded given the lack of mediastinal widening, non-toxic appearance, and lack of identifiable risk factors. While not definitively excluded, further evaluation of GERD as well as the patient's hiatal hernia is deferred to an outpatient setting. ED Course: Patient given ASA. Vital signs remained stable and within clinically acceptable limits. Disposition: admitted for cardiac stress test Impression: Chest Pain. (please reference below for remainder of encounter information) Related Data Home Medications Medication Instructions Recorded Confirmed aspirin 81 mg PO QPM 03/10/18 06/08/18 calcium carbonate-vitamin D3 1 tab PO QPM 03/10/18 06/08/18 [Calcium 500 + D] cholecalciferol (vitamin D3) 1,000 unit PO QPM 03/10/18 06/08/18 [Vitamin D3] ferrous sulfate 325 mg PO DAILY 03/10/18 06/08/18 lisinopril 10 mg PO QPM 03/10/18 06/08/18 omeprazole 20 mg PO BID 03/10/18 06/08/18 Allergies Allergy/AdvReac Type Severity Reaction Status Date / Time No Known Drug Allergies Allergy Verified 06/08/18 14:32 PFSH Medical History Anemia (Acute) GI (gastrointestinal bleed) (Acute) Aortic stenosis (Chronic) Hypertension (Chronic) Allergic rhinitis (Chronic) Breast cancer (Chronic) Hiatal hernia (Chronic) Iron deficiency anemia (Acute) Diverticulosis (Inactive) Surgical History H/O mastectomy (Inactive) Social History household members: none Smoking Status: Former smoker alcohol intake: current substance use type: does not use additional social history: has daughters who live in [facility] and patient is moving to that area in near future Exam Initial Vital Signs Initial Vital Signs: Vital Signs Temperature 98.0 F 06/08/18 14:27 Pulse Rate 85 06/08/18 14:27 Respiratory Rate 14 06/08/18 14:27 Blood Pressure 154/76 H 06/08/18 14:27 Pulse Oximetry 100 06/08/18 14:27 Course Orders Ordered: ED Orders 06/08/18 14:15 Complete Blood Count AUTO DIFF Stat Comprehensive Metabolic Panel Stat D Dimer Stat Lipase Stat Partial Thromboplastin Time Stat Prothrombin Time INR Stat Troponin & CK Cardiac Panel Stat 06/08/18 14:28 EKG-12 Lead Stat 06/08/18 15:35 CT angio chest PE protocol Stat 06/08/18 16:05 Urine Microscopic Stat 06/08/18 17:26 Troponin I Stat Vital Signs - 8 hr 06/08/18 14:27 06/08/18 15:01 06/08/18 15:29 Temperature 98.0 F Pulse Rate 85 68 61 Respiratory Rate 14 11 L 14 Blood Pressure 154/76 H Blood Pressure [Left Arm] 134/64 H 139/85 H Pulse Oximetry 100 100 100 06/08/18 16:17 06/08/18 17:04 06/08/18 17:10 Temperature Pulse Rate 72 67 Respiratory Rate 12 14 Blood Pressure Blood Pressure [Left Arm] 125/62 H Pulse Oximetry 100 97 06/08/18 18:00 Temperature Pulse Rate 88 Respiratory Rate 14 Blood Pressure Blood Pressure [Left Arm] 136/54 H Pulse Oximetry 98 MDM - Chest Pain Lab Data Result diagrams: 06/08/18 14:15 06/08/18 14:15 Lab Results 06/08/18 06/08/18 06/08/18 Range/Units 14:15 14:15 14:15 WBC 7.0 (4.5-11.0) X10^3/uL RBC 3.22 L (4.0-5.2) X10^6/uL Hgb 8.6 L (12.0-16.0) g/dL Hct 26.4 L (36-46) % MCV 82.0 (80-100) fL MCH 26.7 (26-34) PG MCHC 32.6 (30-36) % RDW 14.7 (11.6-14.8) % Plt Count 350 (150-400) X10^3/uL Neut % (Auto) 67.6 (50-75) % Lymph % (Auto) 18.4 L (25-40) % [place] % (Auto) 9.3 (3-14) % Eos % (Auto) 3.4 (2-4) % Baso % (Auto) 1.3 (0-2) % Neut # (Auto) 4700 (7901-1163) /uL PT 10.8 (10.1-12.7) SECONDS INR 1.0 (0.9-1.3) APTT 33 D (26.4-36.2) SECONDS D-Dimer (<230) ng/mL Sodium 138 (137-145) mmol/L Potassium 4.3 (3.4-5.1) mmol/L Chloride 102 (98-107) mmol/L Carbon Dioxide 26 (22-32) mmol/L BUN 15 (7-17) mg/dL Creatinine 0.70 (0.52-1.04) mg/dL Estimated GFR > 60.0 (>60) mL/min BUN/Creatinine Ratio 21.4 (6-22) Glucose 101 (80-110) mg/dL Calcium 9.1 (8.4-10.2) mg/dL Total Bilirubin 0.3 (0.2-1.3) mg/dL AST 24 (14-36) IU/L ALT 21 (9-52) IU/L Alkaline Phosphatase 83 (38-126) U/L Total Creatine Kinase 42 (30-135) U/L CK-MB (CK-2) TNP Troponin I < 0.012 (0.01-0.034) ng/mL Total Protein 7.0 (6.3-8.2) g/dL Albumin 4.1 (3.5-5.0) g/dL Globulin 2.9 (1.7-4.1) g/dL Albumin/Globulin Ratio 1.4 (1.0-2.8) Lipase 98 (23-300) U/L Urine RBC (0-5/HPF) Urine WBC (0-5/HPF) Amorphous Sediment Urine Bacteria (None) Ur Culture Indicated? Micro UA Comment 06/08/18 06/08/18 06/08/18 Range/Units 14:15 16:05 17:26 WBC (4.5-11.0) X10^3/uL RBC (4.0-5.2) X10^6/uL Hgb (12.0-16.0) g/dL Hct (36-46) % MCV (80-100) fL MCH (26-34) PG MCHC (30-36) % RDW (11.6-14.8) % Plt Count (150-400) X10^3/uL Neut % (Auto) (50-75) % Lymph % (Auto) (25-40) % [place] % (Auto) (3-14) % Eos % (Auto) (2-4) % Baso % (Auto) (0-2) % Neut # (Auto) (7579-9505) /uL PT (10.1-12.7) SECONDS INR (0.9-1.3) APTT (26.4-36.2) SECONDS D-Dimer 552 H (<230) ng/mL Sodium (137-145) mmol/L Potassium (3.4-5.1) mmol/L Chloride (98-107) mmol/L Carbon Dioxide (22-32) mmol/L BUN (7-17) mg/dL Creatinine (0.52-1.04) mg/dL Estimated GFR (>60) mL/min BUN/Creatinine Ratio (6-22) Glucose (80-110) mg/dL Calcium (8.4-10.2) mg/dL Total Bilirubin (0.2-1.3) mg/dL AST (14-36) IU/L ALT (9-52) IU/L Alkaline Phosphatase (38-126) U/L Total Creatine Kinase (30-135) U/L CK-MB (CK-2) Troponin I < 0.012 (0.01-0.034) ng/mL Total Protein (6.3-8.2) g/dL Albumin (3.5-5.0) g/dL Globulin (1.7-4.1) g/dL Albumin/Globulin Ratio (1.0-2.8) Lipase (23-300) U/L Urine RBC None seen (0-5/HPF) Urine WBC None seen (0-5/HPF) Amorphous Sediment 1+ Urine Bacteria None seen (None) Ur Culture Indicated? Cult not indicated Micro UA Comment Not Reportable Discharge Plan Departure Prescriptions: No Action lisinopril 10 mg tablet 10 mg PO QPM RF: 0 omeprazole 20 MG capsule,delayed release(DR/EC) 20 mg PO BID RF: 0 aspirin 81 mg Tablet,Delayed Release (Dr/Ec) 81 mg PO QPM RF: 0 ferrous sulfate 325 mg (65 mg iron) Tablet 325 mg PO DAILY RF: 0 calcium carbonate-vitamin D3 [Calcium 500 + D] 500 mg(1,250mg) -200 unit Tablet 1 tab PO QPM RF: 0 cholecalciferol (vitamin D3) [Vitamin D3] 1,000 unit Tablet 1,000 unit PO QPM RF: 0
--- NOTE | 2018-06-08 19:44 | PC.NURSE ---
Addendum entered by Elena Dockery R.N. 06/08/18 20:44: Tele showing NSR per ICU staff Original Note: Addendum entered by Elena Dockery R.N. 06/08/18 20:40: Pt resting quietly through evening. Denies discomfort. IV Heparin infusing as per orders. PTT/PT drawn @ 2030. Call light w/in reach, bed alarm on formpt safety. Continue w/plan of care. Original Note: Pt arrived from ER at 192 Initial complaint was chest pain. Denies discomfort at this time. Tele in place Dr Juarez here to see. New orders recieved. Pt oriented to room ans call system, Call light w/in reach.
--- NOTE | 2018-06-08 20:15 | PM.HP.1 ---
History of Present Illness Date Patient Seen: 06/08/18 Time Patient Seen: 20:16 Chief complaint: Chest Pain Narrative: Called to see patient who presents with chest pain. Patient apparently woke up this morning was getting up moving around started having chest pain which she described as pain on the left lateral side. Seemed to kind of move around to the anterior chest. 3/10 at its worst. Sometimes sharp. Sometimes more pressure. No radiation. Nothing into his shoulder or neck. No nausea or vomiting. No diaphoresis. Patient otherwise had been feeling well. It lasted for 6-7 hours did not resolve until she was given Ativan in the emergency room. No other significant new changes or complaints. Patient has not had any leg swelling or traveling. She has not had any history of trauma. She has not had any falls or chest contusions. No other significant new complaints. She has been feeling well. Has been active. Patient has had some fatigue. Apparently she has had a history of anemia. Has had a GI bleed and iron deficiency anemia definitive cause has not been found. She was going to see her oncologist tomorrow about possibly getting iron supplementation IV. No other significant new changes or complaints. Risk factor age and hypertension. History of hyperlipidemia not on medication. No other changes. Patient History Medical History Anemia (Acute) GI (gastrointestinal bleed) (Acute) Aortic stenosis (Chronic) Hypertension (Chronic) Allergic rhinitis (Chronic) Breast cancer (Chronic) Hiatal hernia (Chronic) Iron deficiency anemia (Acute) Diverticulosis (Inactive) Surgical History H/O mastectomy (Inactive) Family & Social History Family History: Reviewed 06/08/18 by Olayinka Bridges MD Family history unavailable: No Social History: household members none Safety & Behavioral: Feels Safe in Current Yes Environment Been Physically Hurt or No Threatened By a Person Suicidal Ideation Description None Suicide Plan Description No Plan Tobacco & Substance use: Tobacco type cigarettes Smoking Status Former smoker alcohol intake current alcohol intake frequency 0-2 drinks per day Substance Use Type marijuana,prescription drug Meds Home Medications Medication Instructions Recorded Confirmed Type aspirin 81 mg PO QPM 03/10/18 06/08/18 History calcium carbonate-vitamin D3 1 tab PO QPM 03/10/18 06/08/18 History [Calcium 500 + D] cholecalciferol (vitamin D3) 1,000 unit PO QPM 03/10/18 06/08/18 History [Vitamin D3] ferrous sulfate 325 mg PO DAILY 03/10/18 06/08/18 History lisinopril 10 mg PO QPM 03/10/18 06/08/18 History omeprazole 20 mg PO BID 03/10/18 06/08/18 History Allergies Allergy/AdvReac Type Severity Reaction Status Date / Time No Known Drug Allergies Allergy Verified 06/08/18 14:32 Review of Systems Review of Systems All systems reviewed & are unremarkable except as noted in HPI and below Exam Vital Signs (past 8 hours): - 06/08/18 14:27 06/08/18 15:01 06/08/18 15:29 Temperature 98.0 F Pulse Rate 85 68 61 Respiratory Rate 14 11 L 14 Blood Pressure 154/76 H Blood Pressure [Left Arm] 134/64 H 139/85 H Pulse Oximetry 100 100 100 06/08/18 16:17 06/08/18 17:04 06/08/18 17:10 Temperature Pulse Rate 72 67 Respiratory Rate 12 14 Blood Pressure Blood Pressure [Left Arm] 125/62 H Pulse Oximetry 100 97 06/08/18 18:00 06/08/18 19:20 Temperature 98.5 F Pulse Rate 88 78 Respiratory Rate 14 20 Blood Pressure 149/55 H Blood Pressure [Left Arm] 136/54 H Pulse Oximetry 98 Oxygen Delivery Method Room Air Oxygen Flow Rate 99 Narrative Exam Narrative: Alert elderly female in no acute distress. Smiling interactive appropriate. Mucous membranes moist. Pupils are equal in spots of light. Neck supple without adenopathy. No JVD or bruits. Lungs are clear. Heart regular rate and rhythm with 2 to 3/6 systolic murmur best heard at the right sternal border but does radiate into the neck and the left side of the chest. No lifts or heaves. She does have some tenderness along the chest wall on the lateral surface of her chest. There is no swelling no erythema no abnormality of the breast area. No axillary adenopathy. Abdomen is soft positive bowel sounds nontender. Extremities without cyanosis clubbing edema. Skin shows no rash. Neurologic exam is nonfocal. Non normal reflexes normal movement she is awake and alert and interactive. His psychologically interactive and appropriate. Smiling Objective Labs Result Diagrams: 06/08/18 14:15 06/08/18 14:15 Labs: Laboratory Results - last 24 hr 06/08/18 06/08/18 06/08/18 14:15 14:15 14:15 WBC 7.0 RBC 3.22 L Hgb 8.6 L Hct 26.4 L MCV 82.0 MCH 26.7 MCHC 32.6 RDW 14.7 Plt Count 350 Neut % (Auto) 67.6 Lymph % (Auto) 18.4 L [place] % (Auto) 9.3 Eos % (Auto) 3.4 Baso % (Auto) 1.3 Neut # (Auto) 4700 PT 10.8 INR 1.0 APTT 33 D D-Dimer Sodium 138 Potassium 4.3 Chloride 102 Carbon Dioxide 26 BUN 15 Creatinine 0.70 Estimated GFR > 60.0 BUN/Creatinine Ratio 21.4 Glucose 101 Calcium 9.1 Total Bilirubin 0.3 AST 24 ALT 21 Alkaline Phosphatase 83 Total Creatine Kinase 42 CK-MB (CK-2) TNP Troponin I < 0.012 Total Protein 7.0 Albumin 4.1 Globulin 2.9 Albumin/Globulin Ratio 1.4 Lipase 98 Urine RBC Urine WBC Amorphous Sediment Urine Bacteria Ur Culture Indicated? Micro UA Comment 06/08/18 06/08/18 06/08/18 14:15 16:05 17:26 WBC RBC Hgb Hct MCV MCH MCHC RDW Plt Count Neut % (Auto) Lymph % (Auto) [place] % (Auto) Eos % (Auto) Baso % (Auto) Neut # (Auto) PT INR APTT D-Dimer 552 H Sodium Potassium Chloride Carbon Dioxide BUN Creatinine Estimated GFR BUN/Creatinine Ratio Glucose Calcium Total Bilirubin AST ALT Alkaline Phosphatase Total Creatine Kinase CK-MB (CK-2) Troponin I < 0.012 Total Protein Albumin Globulin Albumin/Globulin Ratio Lipase Urine RBC None seen Urine WBC None seen Amorphous Sediment 1+ Urine Bacteria None seen Ur Culture Indicated? Cult not indicated Micro UA Comment Not Reportable CT scan of chest shows no abnormality. No PE. Chest x-ray is normal. EKG shows sinus rhythm 77 beats per minute. No real changes from previous EKG. No significant depressions. Assessment & Plan Plan: Assessment/Plan Narrative: Chest pain. CPKs and troponin and EKG unremarkable. No evidence of PE. Patient with certain risk factors and should be ruled out. Does have a history of aortic stenosis which I do not think is the cause. She also has a history of aortic aneurysm which I do not think also is the cause. Negative CT scan. Will need to watch closely though and we will see how rule out is. Treadmill in a.m.. Patient understands questions answered Anemia. Chronic probable iron deficient. Pretty significant but does not need transfusion. Unable to talk to her oncologist today but we should be able to talk to them tomorrow. The question will be whether not we can give iron if that is what they recommend here we should be able to do that. I would will recheck blood in the morning. She does not actively bleeding. Hypertension. Numbers look good restart her usual medicine and will follow. History of breast cancer. Appears to be stable. Not involved in this admission. DVT prophylaxis. With her history of bleeding will hold Lovenox. But will do SCDs. As History of reflux will treat with her usual medication. Code status. Patient is requesting to be no code. Disposition. Unclear how long this will be something we will need to follow. Depending on results of tomorrow's treadmill which will need to be ordered tomorrow will follow from there. Quality VTE Deep Vein Thrombosis/Pulmonary Embolism Present on Admission: No
[2018-06-09] VITALS (13 sets, daily range): BP systolic 103–153; BP diastolic 54–76; PULSE 64–88; RESP 14–20; TEMP 36.6–37.1; O2SAT 96–100
[2018-06-09 01:30] LABS: Creatine Kinase 39 U/L (30-135)
[2018-06-09 01:42] LABS: Troponin I 0.012 ng/mL (0.01-0.034)
[2018-06-09 07:40] LABS: Creatine Kinase 48 U/L (30-135)
[2018-06-09 07:59] LABS: Troponin I < 0.012 ng/mL (0.01-0.034)
--- NOTE | 2018-06-09 08:58 | PM.PN.1 ---
Subjective Date Patient Seen: 06/09/18 Time Patient Seen: 08:58 Interval history: Patient is a 82-year-old female admitted last night for atypical chest pain negative cardiac enzymes stable vitals. Patient has an old history of musculoskeletal injury on that side and this pain was in that area had full evaluation with cardiac enzymes EKG both normal and unchanged and CT scan for pulmonary embolism which rules out embolic activity. Pain resolved with lorazepam and she has had no recurrence of that discomfort. However patient also has ongoing iron deficiency anemia schedule for iron infusion this morning through Oncology has had a full workup of her gut try to localize my GI bleeding site which has been negative so far with upper endoscopy and follow-up full colonoscopy on 2 occasions in the last few months. She did have black tarry stool which was guaiac positive but not recently. Had transfusion about a month and half ago which elevated her hematocrit to 36 at is 26 today. Not complaining of mid abdomen pain and no nausea or vomiting and feels back to her baseline today except for fatigue. Exam Vital Signs (past 8 hours): - 06/09/18 05:44 Temperature 98.3 F Pulse Rate 64 Respiratory Rate 16 Blood Pressure 103/57 L Pulse Oximetry 98 Oxygen Delivery Method Room Air Oxygen Flow Rate 0 Narrative Exam Narrative: Patient sitting comfortably in bed very clear no pain answering questions very clearly PERRLA EOM are intact Neck without thyromegaly or adenopathy Lungs are clear to auscultation Chest wall pain along the left side in at the site of rib injuries from last year duplicates her pain. Cardiovascular exam shows a 2/6 systolic murmur in the aortic area regular rate and rhythm noted no edema Abdomen is soft nontender no hepatosplenomegaly or mass no rebound or guarding Skin without lesions Neuro is intact symmetrical to fine touch and motor and cranial nerves are clear speech is clear and cognition is intact Objective Labs Result Diagrams: 06/08/18 14:15 06/08/18 14:15 Labs: Laboratory Results - last 24 hr 06/08/18 06/08/18 06/08/18 14:15 14:15 14:15 WBC 7.0 RBC 3.22 L Hgb 8.6 L Hct 26.4 L MCV 82.0 MCH 26.7 MCHC 32.6 RDW 14.7 Plt Count 350 Neut % (Auto) 67.6 Lymph % (Auto) 18.4 L [place] % (Auto) 9.3 Eos % (Auto) 3.4 Baso % (Auto) 1.3 Neut # (Auto) 4700 PT 10.8 INR 1.0 APTT 33 D D-Dimer Sodium 138 Potassium 4.3 Chloride 102 Carbon Dioxide 26 BUN 15 Creatinine 0.70 Estimated GFR > 60.0 BUN/Creatinine Ratio 21.4 Glucose 101 Calcium 9.1 Total Bilirubin 0.3 AST 24 ALT 21 Alkaline Phosphatase 83 Total Creatine Kinase 42 CK-MB (CK-2) TNP Troponin I < 0.012 Total Protein 7.0 Albumin 4.1 Globulin 2.9 Albumin/Globulin Ratio 1.4 Lipase 98 Urine RBC Urine WBC Amorphous Sediment Urine Bacteria Ur Culture Indicated? Micro UA Comment 06/08/18 06/08/18 06/08/18 14:15 16:05 17:26 WBC RBC Hgb Hct MCV MCH MCHC RDW Plt Count Neut % (Auto) Lymph % (Auto) [place] % (Auto) Eos % (Auto) Baso % (Auto) Neut # (Auto) PT INR APTT D-Dimer 552 H Sodium Potassium Chloride Carbon Dioxide BUN Creatinine Estimated GFR BUN/Creatinine Ratio Glucose Calcium Total Bilirubin AST ALT Alkaline Phosphatase Total Creatine Kinase CK-MB (CK-2) Troponin I < 0.012 Total Protein Albumin Globulin Albumin/Globulin Ratio Lipase Urine RBC None seen Urine WBC None seen Amorphous Sediment 1+ Urine Bacteria None seen Ur Culture Indicated? Cult not indicated Micro UA Comment Not Reportable 06/09/18 06/09/18 01:03 07:10 WBC RBC Hgb Hct MCV MCH MCHC RDW Plt Count Neut % (Auto) Lymph % (Auto) [place] % (Auto) Eos % (Auto) Baso % (Auto) Neut # (Auto) PT INR APTT D-Dimer Sodium Potassium Chloride Carbon Dioxide BUN Creatinine Estimated GFR BUN/Creatinine Ratio Glucose Calcium Total Bilirubin AST ALT Alkaline Phosphatase Total Creatine Kinase 39 48 CK-MB (CK-2) Troponin I 0.012 < 0.012 Total Protein Albumin Globulin Albumin/Globulin Ratio Lipase Urine RBC Urine WBC Amorphous Sediment Urine Bacteria Ur Culture Indicated? Micro UA Comment Assessment & Plan Plan: Assessment/Plan Narrative: Assessment number 1 chest pain patient admitted from the ER with chest discomfort negative workup negative enzymes negative EKG and negative chest CT scan. Morning troponin and CK pending. I believe that with her external chest wall discomfort to palpation per the patient resemble in her pain that brought her in this is most likely muscular musculoskeletal discomfort clear chest CT scan no aortic change. However she has risk factors hypertension elevated lipids and does have some calcification on coronary arteries per CT scan will do a Persantine stress test id this morning. Anticipate that it will not show acute disease. Assessment 2 anemia patient has had ongoing anemia for some number of months this has been evaluated by upper endoscopy lower endoscopy and has been seeing solutions sales consultant. She is iron deficient. Will give iron infusion this morning she was scheduled to go and do that outpatient her oncologist but was diverted by this admission is will give morning lab work results which are still pending to see if she has dropped more if her hematocrit has dropped significantly since last night's hematocrit 26 and hemoglobin of 8 may need transfusion acutely along with iron infusion. Assessment 3. History of reflux on consistent omeprazole will continue that at this point Assessment 4. Hypertension stable at this admission so far without tachycardia Quality VTE Deep Vein Thrombosis/Pulmonary Embolism Present on Admission: No
[2018-06-09] MEDS: IRON SUCROSE 200 MG in SODIUM CHLORIDE 0.9% 100 ML 220 ML IV (09:29)
[2018-06-09] MEDS: PANTOPRAZOLE 20 MG TABLET PO ×2 (09:31→21:36)
[2018-06-09] MEDS: SODIUM CHLORIDE 0.9% 250 ML 21 ML IV (09:47)
[2018-06-09] MEDS: SODIUM CHLORIDE 0.9% FLUSH 10 ML IV ×2 (09:47→21:36)
[2018-06-09 10:01] LABS: HEMOLYSIS < 15 (0-50); Iron 15 ug/dL (37-170)
[2018-06-09 10:05] LABS: Add Manual Diff / Slide Review NO; Basophils Percent Auto 1.9 % (0-2); Eosinophils Percent Auto 5.5 % (2-4); Hematocrit 25.5 % (36-46); Hemoglobin 8.2 g/dL (12.0-16.0); Lymphocytes Percent Auto 18.4 % (25-40); Mean Corpuscular HGB Conc 32.2 % (30-36); Mean Corpuscular Hemoglobin 26.3 PG (26-34); Mean Corpuscular Volume 81.8 fL (80-100); Monocytes Percent Auto 11.6 % (3-14); Neutrophils Absolute Auto 2700 /uL (3000-5900); Neutrophils Percent Auto 62.6 % (50-75); Platelet Count 313 X10^3/uL (150-400); Red Blood Cell Count 3.12 X10^6/uL (4.0-5.2); White Blood Cell Count 4.4 X10^3/uL (4.5-11.0)
[2018-06-09 10:12] LABS: Percent Iron Saturation 4 % (15-50); Total Iron Binding Capacity 384 ug/dL (265-497); Transferrin 312 mg/dL (206-381)
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
--- NOTE | 2018-06-09 15:25 | PC.NURSE ---
PT HAD LEXISCAN ORDERED FOR THIS MORNING. UNABLE TO COMPLETE DUE TO EATING BREAKFAST AND DRINKING DECAF COFFEE. THIS VOICE TEACHER NOTIFIED DR. OROURKE.
[2018-06-09 16:35] LABS: Hematocrit 23.5 % (36-46); Hemoglobin 7.7 g/dL (12.0-16.0)
[2018-06-09] MEDS: ASPIRIN EC 81 MG TABLET PO (21:35)
[2018-06-09] MEDS: LISINOPRIL 10 MG TABLET PO (21:35)
[2018-06-10] VITALS: BP 127/61; PULSE 81; RESP 17; TEMP 36.9
[2018-06-10 00:28] VITALS: BP 127/61; PULSE 81; RESP 17; TEMP 36.9
[2018-06-10 00:44] VITALS: BP 106/59; PULSE 84; RESP 16; TEMP 36.8
[2018-06-10 03:09] VITALS: BP 109/59; PULSE 77; RESP 16; TEMP 36.6; O2SAT 98
[2018-06-10 03:10] VITALS: BP 109/59; PULSE 77; RESP 16; TEMP 36.6
[2018-06-10 07:38] LABS: Add Manual Diff / Slide Review NO; Basophils Percent Auto 1.7 % (0-2); Eosinophils Percent Auto 4.6 % (2-4); Hematocrit 32.5 % (36-46); Hemoglobin 10.9 g/dL (12.0-16.0); Lymphocytes Percent Auto 14.3 % (25-40); Mean Corpuscular HGB Conc 33.5 % (30-36); Mean Corpuscular Hemoglobin 27.6 PG (26-34); Mean Corpuscular Volume 82.5 fL (80-100); Neutrophils Absolute Auto 3600 /uL (3000-5900); Neutrophils Percent Auto 64.4 % (50-75); Platelet Count 266 X10^3/uL (150-400); Red Blood Cell Count 3.94 X10^6/uL (4.0-5.2); Red Cell Distribution Width 15.6 % (11.6-14.8); White Blood Cell Count 5.5 X10^3/uL (4.5-11.0)
[2018-06-10 07:40] VITALS: BP 135/71; PULSE 72; RESP 18; TEMP 36.6; O2SAT 98
[2018-06-10] MEDS: FERROUS SULFATE 325 MG TABLET PO (09:02)
[2018-06-10] MEDS: PANTOPRAZOLE 20 MG TABLET PO (09:02)
[2018-06-10] MEDS: SODIUM CHLORIDE 0.9% FLUSH 10 ML IV (09:03)
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
--- NOTE | 2018-06-10 10:46 | CM.DPC ---
DCP Cont: Patient is to be discharged today to home. No immediate needs from DCP, is back to her baseline. Is to follow up with her provider with any concerns. P: Discharge today to home, has family to provide transportation. Yahaira Titus RN/Soil Tester
--- NOTE | 2018-06-10 11:35 | PC.NURSE ---
DISCHARGE NOTE: Patient discharging home this shift. Patient anxious to go, waiting on her ride home. Discharge instructions reviewed and questions answered to patient verbal satisfaction. IV discontinued intact, telemetry discontinued. No acute distress. Patient dressed and waiting for ride in room.
== END 2018-06-10 11:45 | disposition home or self-care (01) ==
LOC: ED 18:29 → AC 06-09 07:29
PROVIDERS: Admitting Provider Family Medicine; Emergency Provider Emergency Medicine; Family Provider Family Medicine; PCP Family Medicine; Visit Provider Family Medicine
DX: D50.9 Iron deficiency anemia, unspecified (principal); R07.9 Chest pain, unspecified; I10 Essential (primary) hypertension; Z87.891 Personal history of nicotine dependence
CPT/HCPCS: 36415; 36430; 36591; 36592; 71275; 80053; 81003; 81015; 82550; 82553; 83540; 83550; 83690; 84484; 85014; 85018; 85025; 85379; 85610; 85730; 86850; 86900; 86901; 93005; 93010; 99284; 99285; G0378; P9016; J1756; Q9967

== ENCOUNTER → 2018-07-27 10:58 | Outpatient (CLI) | payer MEDICARE, SELFPAY ==
[2018-06-08 19:05] VITALS: BMI 22.4
== END ==
PROVIDERS: Family Provider Family Medicine; PCP Family Medicine; Visit Provider Internal Medicine Hematology & Oncology
DX: C50.911 Malignant neoplasm of unspecified site of right female breast (principal); Z17.0 Estrogen receptor positive status [ER+]
CPT/HCPCS: 36415

== ENCOUNTER → 2018-08-14 11:34 | Outpatient (CLI) | payer MEDICARE, SELFPAY ==
[2018-06-08 19:05] VITALS: BMI 22.4
[2018-08-14 11:48] LABS: Add Manual Diff / Slide Review NO; Eosinophils Percent Auto 2.1 % (2-4); Hematocrit 41.4 % (36-46); Hemoglobin 13.7 g/dL (12.0-16.0); Lymphocytes Percent Auto 15.1 % (25-40); Mean Corpuscular HGB Conc 33.1 % (30-36); Mean Corpuscular Hemoglobin 26.8 PG (26-34); Mean Corpuscular Volume 81.1 fL (80-100); Monocytes Percent Auto 9.5 % (3-14); Neutrophils Absolute Auto 4400 /uL (3000-5900); Neutrophils Percent Auto 72.3 % (50-75); Platelet Count 240 X10^3/uL (150-400); Red Cell Distribution Width 16.9 % (11.6-14.8); White Blood Cell Count 6.1 X10^3/uL (4.5-11.0)
[2018-08-14 12:20] LABS: Alanine Aminotransferase 26 IU/L (9-52); Albumin 4.4 g/dL (3.5-5.0); Albumin Globulin Ratio 1.4 (1.0-2.8); Alkaline Phosphatase 82 U/L (38-126); Aspartate Aminotransferase 31 IU/L (14-36); BUN Creatinine Ratio 18.6 (6-22); Bilirubin Total 0.4 mg/dL (0.2-1.3); Blood Urea Nitrogen 13 mg/dL (7-17); Calcium 9.4 mg/dL (8.4-10.2); Carbon Dioxide 29 mmol/L (22-32); Chloride 103 mmol/L (98-107); Estimated Glomerular Filt Rate > 60.0 mL/min (>60); Globulin 3.2 g/dL (1.7-4.1); Glucose 101 mg/dL (80-110); HEMOLYSIS < 15 (0-50); Potassium 4.3 mmol/L (3.4-5.1); Sodium 142 mmol/L (137-145); Total Protein 7.6 g/dL (6.3-8.2)
[2018-08-14 12:30] LABS: HEMOLYSIS < 15 (0-50); Iron 127 ug/dL (37-170)
[2018-08-14 12:41] LABS: Percent Iron Saturation 39 % (15-50); Total Iron Binding Capacity 324 ug/dL (265-497); Transferrin 284 mg/dL (206-381)
[2018-08-14 12:53] LABS: Ferritin 18.2 ng/mL (11.1-264)
--- NOTE | 2018-08-14 15:44 | PC.NURSE ---
All labs currently stable to include FE and Ferritin panels. MD visit on 08/21
== END ==
PROVIDERS: Family Provider Family Medicine; PCP Family Medicine; Visit Provider Internal Medicine Hematology & Oncology
DX: D64.9 Anemia, unspecified (principal)
CPT/HCPCS: 36415; 80053; 82728; 83540; 83550; 85025

== ENCOUNTER 2018-08-21 11:30 | Oncology outpatient (ONC) | payer MEDICARE, SELFPAY ==
[2018-06-08 19:05] VITALS: BMI 22.4
[2018-06-29 10:08] VITALS: BP 138/80; PULSE 74; RESP 18; TEMP 36.6; O2SAT 98
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
[2018-06-29 11:10] LABS: Add Manual Diff / Slide Review NO; Basophils Percent Auto 1.8 % (0-2); Eosinophils Percent Auto 3.1 % (2-4); Hematocrit 38.6 % (36-46); Hemoglobin 12.5 g/dL (12.0-16.0); Lymphocytes Percent Auto 13.2 % (25-40); Mean Corpuscular HGB Conc 32.4 % (30-36); Mean Corpuscular Hemoglobin 26.7 PG (26-34); Mean Corpuscular Volume 82.3 fL (80-100); Neutrophils Absolute Auto 3500 /uL (3000-5900); Neutrophils Percent Auto 69.9 % (50-75); Platelet Count 260 X10^3/uL (150-400); Red Blood Cell Count 4.69 X10^6/uL (4.0-5.2); Red Cell Distribution Width 16.9 % (11.6-14.8); White Blood Cell Count 5.1 X10^3/uL (4.5-11.0)
[2018-06-29 11:23] LABS: Alanine Aminotransferase 32 IU/L (9-52); Albumin 4.3 g/dL (3.5-5.0); Albumin Globulin Ratio 1.5 (1.0-2.8); Alkaline Phosphatase 86 U/L (38-126); Aspartate Aminotransferase 35 IU/L (14-36); BUN Creatinine Ratio 22.9 (6-22); Bilirubin Total 0.3 mg/dL (0.2-1.3); Blood Urea Nitrogen 16 mg/dL (7-17); Calcium 9.3 mg/dL (8.4-10.2); Carbon Dioxide 31 mmol/L (22-32); Chloride 102 mmol/L (98-107); Estimated Glomerular Filt Rate > 60.0 mL/min (>60); Globulin 2.9 g/dL (1.7-4.1); Glucose 91 mg/dL (80-110); HEMOLYSIS < 15 (0-50); Lactate Dehydrogenase 399 U/L (313-618); Potassium 4.2 mmol/L (3.4-5.1); Sodium 140 mmol/L (137-145); Total Protein 7.2 g/dL (6.3-8.2)
[2018-06-29 11:52] LABS: HEMOLYSIS < 15 (0-50); Iron 112 ug/dL (37-170)
[2018-06-29 11:59] LABS: Ferritin 26.4 ng/mL (11.1-264)
[2018-06-29 12:03] LABS: Percent Iron Saturation 32 % (15-50); Total Iron Binding Capacity 345 ug/dL (265-497); Transferrin 283 mg/dL (206-381)
[2018-07-20 12:25] VITALS: BP 156/99; PULSE 90; RESP 18; TEMP 36.7; O2SAT 98
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
[2018-07-27 12:10] LABS: Hemoglobin 13.5 g/dL (12.0-16.0); Mean Corpuscular HGB Conc 33.8 % (30-36); Mean Corpuscular Hemoglobin 27.5 PG (26-34); Mean Corpuscular Volume 81.4 fL (80-100); Platelet Count 234 X10^3/uL (150-400); Red Blood Cell Count 4.91 X10^6/uL (4.0-5.2); Red Cell Distribution Width 16.6 % (11.6-14.8); White Blood Cell Count 5.5 X10^3/uL (4.5-11.0)
[2018-07-27 12:52] LABS: Neutrophils Absolute Manual 3960 /uL (3000-5900); Total Cells Counted 100
[2018-07-27 12:54] LABS: Anisocytosis 1+
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
[2018-08-21 11:56] VITALS: BP 133/95; PULSE 130; RESP 20; TEMP 36.4; O2SAT 99
== END 2018-08-22 12:00 ==
PROVIDERS: Family Provider Family Medicine; PCP Family Medicine; Visit Provider Internal Medicine Hematology & Oncology
DX: C50.111 Malignant neoplasm of central portion of right female breast (principal); D50.9 Iron deficiency anemia, unspecified; Z17.0 Estrogen receptor positive status [ER+]; Z79.811 Long term (current) use of aromatase inhibitors
CPT/HCPCS: 36415; 80053; 82728; 83540; 83550; 83615; 85025; 99205; 99214; 99215

== ENCOUNTER → 2018-08-24 13:59 | Outpatient (CLI) | payer MEDICARE, SELFPAY ==
[2018-06-08 19:05] VITALS: BMI 22.4
== END ==
PROVIDERS: PCP Family Medicine; Visit Provider Internal Medicine Hematology & Oncology
DX: M81.0 Age-related osteoporosis without current pathological fracture (principal); C50.919 Malignant neoplasm of unspecified site of unspecified female breast; Z78.0 Asymptomatic menopausal state; Z87.891 Personal history of nicotine dependence
CPT/HCPCS: 77080

== ENCOUNTER → 2018-11-16 14:58 | Outpatient (CLI) | payer MEDICARE, SELFPAY ==
[2018-06-08 19:05] VITALS: BMI 22.4
[2018-11-16 15:33] LABS: Add Manual Diff / Slide Review NO; Eosinophils Percent Auto 2.3 % (2-4); Hematocrit 39.8 % (36-46); Hemoglobin 13.3 g/dL (12.0-16.0); Mean Corpuscular HGB Conc 33.4 % (30-36); Mean Corpuscular Hemoglobin 27.8 PG (26-34); Mean Corpuscular Volume 83.3 fL (80-100); Monocytes Percent Auto 10.5 % (3-14); Neutrophils Absolute Auto 5000 /uL (1500-7000); Neutrophils Percent Auto 72.2 % (50-75); Platelet Count 226 X10^3/uL (150-400); Red Blood Cell Count 4.77 X10^6/uL (4.0-5.2); Red Cell Distribution Width 13.7 % (11.6-14.8); White Blood Cell Count 6.9 X10^3/uL (4.5-11.0)
[2018-11-16 15:53] LABS: Alanine Aminotransferase 26 IU/L (9-52); Albumin 4.4 g/dL (3.5-5.0); Albumin Globulin Ratio 1.3 (1.0-2.8); Alkaline Phosphatase 109 U/L (38-126); Aspartate Aminotransferase 34 IU/L (14-36); BUN Creatinine Ratio 21.4 (6-22); Bilirubin Total 0.3 mg/dL (0.2-1.3); Blood Urea Nitrogen 15 mg/dL (7-17); Calcium 9.5 mg/dL (8.4-10.2); Carbon Dioxide 26 mmol/L (22-32); Chloride 104 mmol/L (98-107); Estimated Glomerular Filt Rate > 60.0 mL/min (>60); Globulin 3.5 g/dL (1.7-4.1); Glucose 101 mg/dL (80-110); HEMOLYSIS < 15 (0-50); Potassium 4.2 mmol/L (3.4-5.1); Sodium 141 mmol/L (137-145); Total Protein 7.9 g/dL (6.3-8.2)
== END ==
PROVIDERS: PCP Family Medicine; Visit Provider Internal Medicine Hematology & Oncology
DX: C50.919 Malignant neoplasm of unspecified site of unspecified female breast (principal); D64.9 Anemia, unspecified
CPT/HCPCS: 36415; 80053; 85025

== ENCOUNTER → 2018-12-01 15:03 | Oncology outpatient (ONC) | payer MEDICARE, SELFPAY ==
[2018-06-08 19:05] VITALS: BMI 22.4
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
[2018-12-01 16:08] VITALS: BP 156/103; PULSE 84; RESP 19; TEMP 36.9; O2SAT 98
== END ==
PROVIDERS: PCP Family Medicine; Visit Provider Internal Medicine Hematology & Oncology
DX: C50.811 Malignant neoplasm of overlapping sites of right female breast (principal); D64.9 Anemia, unspecified; M81.0 Age-related osteoporosis without current pathological fracture; Z17.0 Estrogen receptor positive status [ER+]; Z79.811 Long term (current) use of aromatase inhibitors
CPT/HCPCS: 99214